=== PATIENT | female | born 1990 | race American Indian/Alaskan Native ===

== ENCOUNTER 2017-05-10 22:07 | Emergency (ER) | payer SELFPAY ==
[2017-05-10 23:56] VITALS: BP 106/57
== END 2017-05-11 00:15 | disposition left against medical advice (07) ==
LOC: ED 22:07
DX: N93.9 Abnormal uterine and vaginal bleeding, unspecified (principal); Z53.21 Procedure and treatment not carried out due to patient leaving prior to being seen by health care provider

== ENCOUNTER 2018-08-23 15:23 | Emergency (ER) | payer MEDICAID ==
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
[2018-08-23 15:56] VITALS: BP 97/54
[2018-08-23 17:06] LABS: HCG Qualitative,Urine Negative (Negative)
[2018-08-23] MEDS ORDERED: IBUPROFEN PO ONE (17:29)
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
[2018-08-23] MEDS ORDERED: FLEXERIL PO ONE (18:12)
[2018-08-23] MEDS ORDERED: FLEXERIL ONE (18:14)
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
== END 2018-08-23 18:30 | disposition home or self-care (01) ==
LOC: ED 15:23
DX: S39.012A Strain of muscle, fascia and tendon of lower back, initial encounter (principal); F17.200 Nicotine dependence, unspecified, uncomplicated; M79.10 Myalgia, unspecified site; V43.62XA Car passenger injured in collision with other type car in traffic accident, initial encounter; Y93.89 Activity, other specified; Y92.488 Other paved roadways as the place of occurrence of the external cause; Y99.8 Other external cause status
CPT/HCPCS: 72100; 81025; 99284

== ENCOUNTER 2020-10-25 23:07 | Emergency (ER) | payer MEDICAID ==
[2020-10-25 23:49] VITALS: BP 124/56
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
[2020-10-26] MEDS ORDERED: TETANUS,DIPH,PERTUSS(ACELL) VACCINE 0.5 ML SYRINGE IM ONE (01:21)
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
[2020-10-26] MEDS ORDERED: IBUPROFEN 800 MG TAB PO ONE (02:03)
[2020-10-26] MEDS ORDERED: oxyCODONE /ACETAMINOPHEN 5-325MG TAB PO ONE (02:03)
== END 2020-10-26 02:25 | disposition home or self-care (01) ==
LOC: ED 23:07
DX: S01.81XA Laceration without foreign body of other part of head, initial encounter (principal); S09.90XA Unspecified injury of head, initial encounter; F12.90 Cannabis use, unspecified, uncomplicated; Z88.8 Allergy status to other drugs, medicaments and biological substances; Z88.6 Allergy status to analgesic agent; Z91.018 Allergy to other foods; Z79.899 Other long term (current) drug therapy; Y04.8XXA Assault by other bodily force, initial encounter; Y93.89 Activity, other specified; Y92.89 Other specified places as the place of occurrence of the external cause; Y99.8 Other external cause status; Z98.890 Other specified postprocedural states
CPT/HCPCS: 70450; 70486; 90471; 90715